=== PATIENT | female | born 1995 ===

== ENCOUNTER 2023-01-11 05:51 | Day surgery (SDC) | payer OTHER ==
[~2023-01-11] VITALS: Ht 152.4 cm; Wt 97.1 kg
[~2023-01-11 05:51] MED LIST: KEPPRA1000 MG PO; SYNTHROID75 MCG PO; VIMPAT200 MG PO; ZONEGRAN100 MG PO
[2023-01-11] MEDS ORDERED: MORGIDOX100 MG PO (18:10)
== END 2023-01-11 22:50 | disposition home or self-care (01) ==
LOC: CIR.AMB 05:51
PROVIDERS: ATTEND Obstetrics & Gynecology
DX: N92.1 Excessive and frequent menstruation with irregular cycle (principal); D25.0 Submucous leiomyoma of uterus; N84.0 Polyp of corpus uteri; N92.0 Excessive and frequent menstruation with regular cycle; Z20.822 Contact with and (suspected) exposure to COVID-19; E03.9 Hypothyroidism, unspecified; R56.9 Unspecified convulsions